=== PATIENT | female | born 1990 | race Two or more races ===

== ENCOUNTER 2019-05-10 10:36 | Emergency (ER) | payer OTHER ==
[~2019-05-10] VITALS: Ht 165.1 cm; Wt 63.5 kg
== END 2019-05-10 13:07 | disposition home or self-care (01) ==
LOC: ER 10:36
DX: S30.0XXA Contusion of lower back and pelvis, initial encounter (principal); M54.5 Low back pain; W18.39XA Other fall on same level, initial encounter; Y93.89 Activity, other specified; Y92.89 Other specified places as the place of occurrence of the external cause; Y99.8 Other external cause status

== ENCOUNTER 2019-07-25 08:49 | Emergency (ER) | payer OTHER ==
[~2019-07-25] VITALS: Ht 162.6 cm; Wt 63.5 kg
[2019-07-25] MEDS ORDERED: ZITHROMAX500 MG PO (11:46)
== END 2019-07-25 11:48 | disposition home or self-care (01) ==
LOC: ER 08:49
DX: B34.9 Viral infection, unspecified (principal)

== ENCOUNTER 2021-01-07 11:38 | Emergency (ER) | payer OTHER ==
[~2021-01-07] VITALS: Ht 162.6 cm; Wt 63.5 kg
[~2021-01-07 11:38] MED LIST: ZITHROMAX500 MG PO
[2021-01-07] MEDS ORDERED: BENADRYL25 MG PO (15:09)
[2021-01-07] MEDS ORDERED: ZYRTEC10 M3 PO (15:09)
== END 2021-01-07 15:14 | disposition home or self-care (01) ==
LOC: ER 11:38
DX: T78.49XA Other allergy, initial encounter (principal); R21 Rash and other nonspecific skin eruption; Z11.52 Encounter for screening for COVID-19

== ENCOUNTER 2021-01-09 08:21 | Emergency (ER) | payer OTHER ==
[~2021-01-09] VITALS: Ht 162.6 cm; Wt 63.5 kg
[~2021-01-09 08:21] MED LIST changes: +BENADRYL25 MG PO; +ZYRTEC10 M3 PO
[2021-01-09] MEDS ORDERED: MEDROLPACK PO (13:28)
[2021-01-09] MEDS ORDERED: AMOX1TAB5 PO (13:28)
== END 2021-01-09 13:34 | disposition home or self-care (01) ==
LOC: ER 08:21
DX: B34.9 Viral infection, unspecified (principal); R21 Rash and other nonspecific skin eruption; Z11.52 Encounter for screening for COVID-19